=== PATIENT | female | born 1985 ===

== ENCOUNTER → 2020-06-09 08:53 | Outpatient (BNVA) | payer SELFPAY | PROVIDERS: PCP Internal Medicine; Visit Provider Physician Assistant Medical | DX: Z13.89 Encounter for screening for other disorder (principal) ==

== ENCOUNTER 2020-07-01 10:52 | Emergency (ER) | payer OTHER, SELFPAY | END 2020-07-01 13:42 | disposition left against medical advice (07) | LOC: HO.ED 13:40 | PROVIDERS: Emergency Provider Emergency Medicine; PCP Internal Medicine | DX: R00.2 Palpitations (principal) | CPT/HCPCS: 99281 ==

== ENCOUNTER 2020-07-28 15:13 | Emergency (ER) | payer OTHER, SELFPAY ==
[2020-07-28 15:26] VITALS: BP 107/64; PULSE 62; RESP 16; TEMP 36.7; O2SAT 99; BMI 30.1
--- NOTE | 2020-07-28 15:40 | ED_ITS ---
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 Fever, URI symptoms. MD complaint: chest pain Onset (ago): hour(s) Prior episodes: Yes Pain location: right chest Pain radiation: right arm Quality: aching Treatment prior to arrival: none Related Data Allergies Allergy/AdvReac Type Severity Reaction Status Date / Time latex [LATEX] Allergy Unknown ITCHY Unverified 04/29/20 16:51 Review of Systems Review of Systems: Constitutional: No Weight loss, No Fever, No Chills, No Night Sweats, No Fatigue, No Malaise ENT/Mouth: No Hearing loss, No Ear Pain, No Nasal Congestion, No Sinus Pain, No Hoarseness, No sore throat, No Rhinorrhea, No Swallowing Difficulty Eyes: No Eye Pain, No Swelling, No Redness, No Foreign Body, No Discharge, No Vision Changes Cardiovascular: + Chest Pain/palpitation as noted in HPI, No SOB, No Dyspnea on Exertion, No Orthopnea, No Edema, No Palpitations Respiratory: No Cough, No Sputum, No Wheezing, No Smoke Exposure, No Dyspnea Gastrointestinal: No Nausea, No Vomiting, No Diarrhea, No Constipation, No abdominal Pain, No Hematochezia, No Melena Genitourinary: no irregular bleeding, No Dysuria, No Urinary Frequency, No Hematuria, No Urinary Incontinence, No Urgency, No Flank Pain, No Urinary Flow Changes Musculoskeletal: No joint pain, No Myalgias, No Joint Swelling Skin: No Skin Lesions, No rash Neuro: No Weakness, No Numbness, No Paresthesias, No Loss of Consciousness, No Dizziness, No Headache Psych: + Anxiety/Panic, No Depression, No SI/HI/AH/VH, No Social Issues Heme/Lymph: No Bruising, No Bleeding,No Lymphadenopathy Endocrine: No Polyuria, No Polydipsia, No Temperature Intolerance Yes all other systems are reviewed and are negative [facility] Past Medical History Medical History (Updated 07/28/20 @ 17:11 by Ethan Huffman NP) Palpitations Surgical History (Updated 07/28/20 @ 15:31 by Yaneth Antony) Hx of appendectomy Social History Social History Advance Directives: No Advance Directives Information Provided: Yes Physical Exam Vital Signs: Vital Signs: Last Vital Signs Temp 98.1 F 07/28/20 15:26 Pulse 62 07/28/20 15:26 Resp 16 07/28/20 15:26 BP 107/64 07/28/20 15:26 Pulse Ox 99 07/28/20 15:26 Body Mass Index 30.1 Reviewed Const: General: cooperative and healthy appearing; No acute distress or intoxicated appearing Nutritional Appearance: average body habitus Orientation/consciousness: patient oriented x3 HENMT: Head: Yes normal to inspection Ears: hearing grossly normal bilaterally Eyes: General: appearance normal, both eyes and all related structures Visual Knox: normal visual knox by confrontation Neck: Neck: Yes normal visual inspection and No tender Thyroid: Thyroid normal Chest: Chest palpation & inspection: normal inspection of the chest Resp: Effort & Inspection: normal respiratory effort Cardio: Jugular venous distension: no JVD Rhythm: regular rhythm Heart sounds: S1 normal heart sound present and S2 normal heart sound present GI: Inspection: Yes normal to inspection Palpation (GI): Soft to palpation Percussion: Yes normal to percussion Auscultation: normal bowel sounds : General: Yes no CVA tenderness Back/Spine/Pelvis: Back: no CVA tenderness Skin: General skin exam: no rashes or lesions noted Neuro: General: patient oriented x3 Extrem: General: Yes normal to inspection Course Course Course Narrative: In review 34-year-old female with history of ectopy/tachycardia who reportedly is scheduled for cardiac ablation presenting complaint of chest pain on the right side for past 1 hour or so radiating to the right arm. Several visits in the past for similar. Will check cardiac enzymes, EKG, chest x-ray rule out acute electrolyte derangement, ACS or pulmonary disease. Heart rate is 62 and normal sinus rhythm with no ectopy. I do not suspect PE, perc negative. Reevaluation(s) Reevaluation #1: After my evaluation patient reportedly declined her labs as she stated that she felt okay to the nurse and will go home and her. Patient denies any chance to re-presented bedside as I was informed of this and went to the bedside within several minutes as she had eloped already. MDM - Chest Pain Lab Data Labs: Lab Results 07/28/20 07/28/20 Range/Units 15:51 15:51 Urine Color YELLOW Urine Appearance CLEAR Urine pH 5.5 (5.0-8.0) Ur Specific Circle 1.025 (1.005-1.025) Urine Protein NEG (NEG-TRACE) MG/DL Urine Glucose (UA) NEG (NEG) MG/DL Urine Ketones NEG (NEG) MG/DL Urine Blood NEG (NEG) Urine Nitrite NEG (NEG) Ur Leukocyte Esterase NEG (NEG) Urine RBC 0-2 (0) /HPF Urine WBC 1-4 (0-4) /HPF Ur Squamous Epith Cells TRACE /LPF Amorphous Sediment 1+ /LPF Urine Bacteria NONE /LPF Urine Test NEGATIVE (NEGATIVE) Urine Opiates Screen Not Detected (Not Detect) Ur Barbiturates Screen Not Detected (Not Detect) Ur Phencyclidine Scrn Not Detected (Not Detect) Ur Amphetamines Screen Not Detected (Not Detect) U Benzodiazepines Scrn Not Detected (Not Detect) Urine Cocaine Screen Not Detected (Not Detect) U Marijuana (THC) Screen Not Detected (Not Detect) Discharge Plan Discharge Clinical Impression: Atypical chest pain Patient Disposition: Elopement Instructions: Chest Pain (ED), Heart Palpitations (ED)
--- NOTE | 2020-07-28 15:43 | XR_ITS ---
EXAMINATION: XR CHEST CLINICAL INFORMATION: Chest pain COMPARISON: Chest radiographs 12/23/2019, 03/09/2019 TECHNIQUE: Portable upright AP view of the chest was obtained. FINDINGS: The lungs are clear. There is no pneumothorax, pleural reaction, airspace consolidation, groundglass opacity. There is no effusion. The costophrenic sulci are clear. The heart is normal in size. The hilar and mediastinal contours are normal. No visible acute bony abnormality. XR/XR chest 1V IMPRESSION: Unremarkable examination.
--- NOTE | 2020-07-28 15:43 | ECG_ITS ---
Test Reason : CHEST PAIN Blood Pressure : / mmHG Vent. Rate : 062 BPM Atrial Rate : 062 BPM P-R Int : 160 ms QRS Dur : 104 ms QT Int : 444 ms P-R-T Axes : 030 012 010 degrees QTc Int : 450 ms Normal sinus rhythm Nonspecific T wave abnormality Abnormal ECG When compared with ECG of 23-DEC-2019 13:44, T wave inversion now evident in Anterior leads Referred By: Ethan Huffman Electronically Signed By:Leobardo Boone
[2020-07-28 16:00] LABS: Glucose Urine UA NEG (NEG); Leukocyte Esterase Urine NEG (NEG); Nitrite Urine NEG (NEG); PH 5.5 (5.0-8.0); Specific Gravity - Urine 1.025 (1.005-1.025); Urine Blood NEG (NEG); Urine Ketones NEG (NEG); Urine Protein NEG (NEG-TRACE)
[2020-07-28 16:09] LABS: Appearance Urine CLEAR; Color Urine YELLOW
[2020-07-28 16:10] LABS: UPreg QC Valid YES; Urine Pregnancy NEGATIVE (NEGATIVE)
[2020-07-28 16:14] LABS: RBC Urine 0-2 /HPF (0); Squamous Epithelial Cell Urine TRACE /LPF
[2020-07-28 16:15] LABS: Amorphous Sediment Urine 1+ /LPF
[2020-07-28 16:18] LABS: Amphetamine Screen Urine Not Detected (Not Detect); Barbiturates, Urine Not Detected (Not Detect); Benzodiazepines Screen Urine Not Detected (Not Detect); Cannabinoid Screen Urine Not Detected (Not Detect); Cocaine Screen Urine Not Detected (Not Detect); Opiate Screen Urine Not Detected (Not Detect); Phencyclidine Screen Urine Not Detected (Not Detect)
--- NOTE | 2020-07-28 16:46 | PC.NURSE ---
patient states wants to leave because feels better. this nurse attempted to convince patient to stay but patient insistant in leaving. pain has decreased. no s/s of distress.
== END 2020-07-28 17:16 | disposition left against medical advice (07) ==
PROVIDERS: Nurse Practitioner Primary Care; Emergency Provider Emergency Medicine; PCP Internal Medicine
DX: R07.89 Other chest pain (principal); R00.2 Palpitations
CPT/HCPCS: 71045; 80307; 81001; 81025; 93005; 99283

== ENCOUNTER 2020-08-18 14:13 | Outpatient (REF) | payer OTHER, SELFPAY | END 2020-08-18 14:14 | disposition home or self-care (01) | LOC: HO.HMGCLDS 14:13 | PROVIDERS: PCP Internal Medicine; Visit Provider Internal Medicine | DX: Z13.89 Encounter for screening for other disorder (principal) ==

== ENCOUNTER 2020-08-19 | Outpatient (REF) | payer OTHER, SELFPAY ==
[2020-08-19 11:26] LABS: Glucose Urine UA NEG (NEG); Leukocyte Esterase Urine 2+ (NEG); Nitrite Urine NEG (NEG); Specific Gravity - Urine >= 1.030 (1.005-1.025); Urine Blood NEG (NEG); Urine Ketones NEG (NEG); Urine Protein NEG (NEG-TRACE)
[2020-08-19 11:27] LABS: Appearance Urine CLOUDY; Color Urine YELLOW
[2020-08-19 11:39] LABS: Bacteria Urine 2+ /LPF; RBC Urine 0 /HPF (0); Squamous Epithelial Cell Urine 4+ /LPF
[2020-08-20 19:57] LABS: C. trachomatis RNA TMA NOT DETECTED (NOT DETECTED); N. gonorrhoeae RNA TMA NOT DETECTED (NOT DETECTED)
== END 2020-08-19 00:01 | disposition home or self-care (01) ==
LOC: HO.HMGCLNP
PROVIDERS: Visit Provider Internal Medicine
DX: N89.8 Other specified noninflammatory disorders of vagina (principal)
CPT/HCPCS: 81001; 87086; 87491; 87591

== ENCOUNTER 2020-08-31 10:04 | Outpatient (REF) | payer OTHER, SELFPAY ==
[2020-08-31 11:24] LABS: MANUAL DIFF FLAG NO
[2020-08-31 11:45] LABS: Basophils Percent Auto 0.6 % (0-2); Eosinophils Absolute Auto 0.1 X10*3/uL (0.0-0.4); Eosinophils Percent Auto 1.3 % (0-4); Hematocrit 39.2 % (37-47); Hemoglobin 12.7 g/dl (12.0-16.0); Imm Gran Abs Auto 0.01 X10*3/uL (0.00-0.03); Imm Gran Pct Auto 0.2 % (0.0-0.4); Lymphocytes Absolute Auto 1.8 X10*3/uL (1.2-4.9); Lymphocytes Percent Auto 33.3 % (20-40); Mean Corpuscular HGB Conc 32.4 g/dl (31.0-35.0); Mean Corpuscular Hemoglobin 30.5 pg (27.0-33.0); Mean Corpuscular Volume 94.2 fL (80-98); Mean Platelet Volume 9.3 fL (9.4-12.3); Monocytes Absolute Auto 0.4 X10*3/uL (0.1-1.2); Monocytes Percent Auto 7.7 % (2-11); Neutrophils Percent Auto 56.9 % (45-73); Platelet Count 260 X10*3/uL (160-400); Red Blood Count 4.16 X10*6/uL (4.20-5.50); Red Cell Distribution Width 11.3 % (11.0-16.0); White Blood Count 5.3 X10*3/uL (4.8-10.8)
[2020-08-31 11:47] LABS: Prothrombin Time 11.6 SEC (10.8-13.0)
[2020-08-31 11:50] LABS: Partial Thromboplastin Time 35.7 SEC (24.1-38.0)
[2020-08-31 11:53] LABS: HCG Quantitative < 2 mIU/mL
[2020-08-31 12:07] LABS: Anion Gap 12 (12-20); Blood Urea Nitrogen 13 mg/dL (9-16); Calcium 8.9 mg/dL (8.4-10.2); Carbon Dioxide 27 mmol/L (22-29); Chloride 103 mmol/L (96-108); Estimated Glomerular Filt Rate > 60; Glucose Fasting 103 mg/dL (60-99); Potassium 4.4 mmol/l (3.3-5.1); Sodium 138 mmol/L (135-145)
[2020-08-31 12:44] LABS: Glucose Urine UA NEG (NEG); Leukocyte Esterase Urine NEG (NEG); Nitrite Urine NEG (NEG); Urine Blood 3+ (NEG); Urine Ketones NEG (NEG); Urine Protein TRACE MG/DL (NEG-TRACE)
[2020-08-31 12:46] LABS: Appearance Urine CLOUDY; Color Urine PINK
[2020-08-31 13:14] LABS: WBC Urine 0-2 /HPF (0-4)
[2020-08-31 13:15] LABS: RBC Urine TNTC /HPF (0); Squamous Epithelial Cell Urine 1+ /LPF
[2020-09-01 09:09] LABS: HIV AB/AG Nonreactive (Nonreactive); HIV Num 1 0.07 S/CO (0.00-0.99)
[2020-09-02 00:27] LABS: C. trachomatis RNA TMA NOT DETECTED (NOT DETECTED); N. gonorrhoeae RNA TMA NOT DETECTED (NOT DETECTED)
== END 2020-08-31 10:05 | disposition home or self-care (01) ==
LOC: HO.HMGCLDS 10:04
PROVIDERS: PCP Internal Medicine; Visit Provider Internal Medicine
DX: Z01.818 Encounter for other preprocedural examination (principal); E66.9 Obesity, unspecified; I10 Essential (primary) hypertension; N89.8 Other specified noninflammatory disorders of vagina; Z11.3 Encounter for screening for infections with a predominantly sexual mode of transmission; Z11.8 Encounter for screening for other infectious and parasitic diseases
CPT/HCPCS: 36415; 80048; 81001; 81003; 84702; 85025; 85610; 85730; 87389; 87491; 87591

== ENCOUNTER 2020-09-13 08:42 | Outpatient (REF) | payer OTHER, SELFPAY ==
[2020-09-13 11:42] LABS: Estimated Average Glucose 103 mg/dL; Hemoglobin A1c % 5.2 %
== END 2020-09-13 08:43 | disposition home or self-care (01) ==
LOC: HO.HMGCLDS 08:42
PROVIDERS: PCP Internal Medicine; Visit Provider Internal Medicine
DX: Z01.810 Encounter for preprocedural cardiovascular examination (principal); I47.1 Supraventricular tachycardia
CPT/HCPCS: 36415; 83036; 93005; 99212

== ENCOUNTER 2021-01-17 09:58 | Emergency (ER) | payer OTHER, SELFPAY ==
--- NOTE | ~2021-01-17 | XR_ITS ---
EXAMINATION: RIGHT FEMUR AND RIGHT FOOT. CLINICAL INFORMATION: Injury. COMPARISON: None TECHNIQUE: 2 views right femur. 3 views right foot FINDINGS: RIGHT FEMUR: There is no visible acute fracture or bony abnormality. The soft tissues are normal. The hip joint is normal. RIGHT FOOT: There is no visible acute fracture, dislocation or subluxation. The intertarsal, metatarsophalangeal and interphalangeal joints are maintained normal. The ankle mortise and subtalar joints are normal. The soft tissues are normal. XR/XR foot RT min 3V IMPRESSION: Unremarkable right femur. Unremarkable right foot exam.
--- NOTE | ~2021-01-17 | CT_ITS ---
EXAMINATION: CT CERVICAL SPINE WITHOUT CONTRAST CLINICAL INFORMATION: Trauma. Rule out fracture. COMPARISON: Previous cervical spine CT April 2017 TECHNIQUE: Axial images through the cervical spine without contrast. Sagittal and coronal reconstructions obtained on the technologist workstation. This CT examination was performed using dose optimization techniques as appropriate, variously including the following: *Automated exposure control *Adjustment of mA and/or kV according to patient size (this includes techniques or standardized protocols for targeted exams where dose is matched to indication/reason for exam; i.e. extremities or head) *Use of iterative reconstruction technique DLP: 599 mGy-cm FINDINGS: There is curvature of the lower cervical spine to the right and proximal thoracic spine to the left. Bone alignment is otherwise normal. No fracture or dislocation is seen. Disc spaces are normal. Prevertebral soft tissues are normal. There is shotty cervical lymphadenopathy. The visualized lung apices are clear. CT/CT cervical spine wo con IMPRESSION: No fracture seen.
--- NOTE | ~2021-01-17 | XR_ITS ---
EXAMINATION: LEFT KNEE AND RIGHT ANKLE CLINICAL INFORMATION: Injury. Pain. COMPARISON: None TECHNIQUE: Left knee 4 views. Right ankle 2 views. FINDINGS: LEFT KNEE: There is no visible acute fracture, dislocation or subluxation. The tricompartment joint space is maintained normal. No bony erosive changes, loose body or joint effusion. RIGHT ANKLE: There is no visible acute fracture or dislocation. The ankle mortise and subtalar joints are normal. The soft tissues are normal. XR/XR ankle RT 2V IMPRESSION: Unremarkable left knee exam. Unremarkable right ankle exam.
--- NOTE | ~2021-01-17 | CT_ITS ---
EXAMINATION: CT HEAD WITHOUT CONTRAST CLINICAL INFORMATION: Injury. Rule out bleed. COMPARISON: Previous head CT April 2017 TECHNIQUE: Contiguous axial imaging was performed from the skull base to vertex without intravenous administration of contrast. This CT examination was performed using dose optimization techniques as appropriate, variously including the following: *Automated exposure control *Adjustment of mA and/or kV according to patient size (this includes techniques or standardized protocols for targeted exams where dose is matched to indication/reason for exam; i.e. extremities or head) *Use of iterative reconstruction technique DLP: 696 mGy-cm FINDINGS: There is no evidence of acute intracranial hemorrhage or territorial infarction. No abnormal mass effect or midline shift is seen. Traylor to white matter differentiation is well preserved. No extra-axial fluid collections are identified. The ventricles are normal in size. There is no abnormal attenuation within the brain parenchyma. The osseous structures and soft tissues are normal. The mastoid air cells and visualized portions of the paranasal sinuses are well aerated. CT/CT head/brain wo con IMPRESSION: No acute intracranial pathology.
--- NOTE | ~2021-01-17 | XR_ITS ---
EXAMINATION: RIGHT FEMUR AND RIGHT FOOT. CLINICAL INFORMATION: Injury. COMPARISON: None TECHNIQUE: 2 views right femur. 3 views right foot FINDINGS: RIGHT FEMUR: There is no visible acute fracture or bony abnormality. The soft tissues are normal. The hip joint is normal. RIGHT FOOT: There is no visible acute fracture, dislocation or subluxation. The intertarsal, metatarsophalangeal and interphalangeal joints are maintained normal. The ankle mortise and subtalar joints are normal. The soft tissues are normal. XR/XR femur RT 2V IMPRESSION: Unremarkable right femur. Unremarkable right foot exam.
--- NOTE | ~2021-01-17 | XR_ITS ---
EXAMINATION: LEFT KNEE AND RIGHT ANKLE CLINICAL INFORMATION: Injury. Pain. COMPARISON: None TECHNIQUE: Left knee 4 views. Right ankle 2 views. FINDINGS: LEFT KNEE: There is no visible acute fracture, dislocation or subluxation. The tricompartment joint space is maintained normal. No bony erosive changes, loose body or joint effusion. RIGHT ANKLE: There is no visible acute fracture or dislocation. The ankle mortise and subtalar joints are normal. The soft tissues are normal. XR/XR knee LT 4V IMPRESSION: Unremarkable left knee exam. Unremarkable right ankle exam.
[2021-01-17 10:01] VITALS: BP 108/64; PULSE 72; RESP 17; TEMP 36.1; O2SAT 98; BMI 29.2
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
[2021-01-17 10:50] LABS: UPreg QC Valid YES; Urine Pregnancy NEGATIVE (NEGATIVE)
--- NOTE | 2021-01-17 12:27 | PC.NURSE ---
DARCIE WRAP APPLIED TO RIGHT KNEE AND RIGHT FOOT FOR COMFORT.
== END 2021-01-17 12:29 | disposition home or self-care (01) ==
PROVIDERS: Physician Assistant Medical; Emergency Provider Emergency Medicine; PCP Internal Medicine
DX: S93.601A Unspecified sprain of right foot, initial encounter (principal); S16.1XXA Strain of muscle, fascia and tendon at neck level, initial encounter; S70.11XA Contusion of right thigh, initial encounter; V91.83XA Other injury due to other accident to other powered watercraft, initial encounter; Y93.19 Activity, other involving water and watercraft; Y92.89 Other specified places as the place of occurrence of the external cause; Y99.9 Unspecified external cause status
CPT/HCPCS: 70450; 72125; 73552; 73564; 73600; 73630; 81025; 99284

== ENCOUNTER 2021-05-25 12:32 | Outpatient (REF) | payer OTHER, SELFPAY ==
[2021-05-26 02:08] LABS: CT PCR NOT DETECTED (Not Detect.); NG PCR NOT DETECTED (Not Detect.)
[2021-05-26 08:40] LABS: BV Int Neg Control Negative (Negative); BV Int Pos Control Positive (Positive)
== END 2021-05-25 12:33 | disposition home or self-care (01) ==
LOC: HO.LAB 12:32
PROVIDERS: PCP Internal Medicine; Visit Provider Physician Assistant Medical
DX: Z11.3 Encounter for screening for infections with a predominantly sexual mode of transmission (principal); R10.2 Pelvic and perineal pain; R35.0 Frequency of micturition
CPT/HCPCS: 87086; 87147; 87480; 87491; 87510; 87591; 87660

== ENCOUNTER → 2021-05-25 12:32 | Outpatient (BNVA) | payer SELFPAY | PROVIDERS: PCP Internal Medicine | DX: R76.11 Nonspecific reaction to tuberculin skin test without active tuberculosis (principal) ==

== ENCOUNTER → 2021-10-11 13:40 | Outpatient (BNVA) | payer OTHER, SELFPAY | PROVIDERS: PCP Internal Medicine; Referring Provider Internal Medicine; Visit Provider Nurse Practitioner Family | DX: I47.1 Supraventricular tachycardia (principal); R00.2 Palpitations | CPT/HCPCS: 93005; 99212 ==

== ENCOUNTER → 2021-10-24 11:33 | Outpatient (REF) | payer OTHER, SELFPAY ==
--- NOTE | 2021-10-24 11:37 | HM_ITS ---
conclusion: 1. Patient was monitored for total period of 6 days and 23 hours 2. Baseline was normal sinus rhythm with average heart of 74 beats per minute 3. Total of 258 PACs accounting for 0.03% of total beats accounting for very rare PACs 4. No significant pauses or bradycardia 5 Patient reported 15 total events most of which correlated with sinus rhythm, 1-2 events correlated with PACs. MTDD
== END ==
LOC: HO.CARD 11:33
PROVIDERS: Visit Provider Nurse Practitioner Family
DX: I47.1 Supraventricular tachycardia (principal); R00.2 Palpitations
CPT/HCPCS: 93242

== ENCOUNTER 2022-03-30 09:17 | Outpatient (REF) | payer OTHER, SELFPAY ==
[2022-03-30 16:58] LABS: MANUAL DIFF FLAG NO
[2022-03-30 17:02] LABS: Basophils Percent Auto 0.5 % (0-2); Eosinophils Absolute Auto 0.1 X10*3/uL (0.0-0.4); Hematocrit 38.5 % (37.0-47.0); Hemoglobin 12.7 g/dl (12.0-16.0); Imm Gran Abs Auto 0.02 X10*3/uL (0.00-0.03); Imm Gran Pct Auto 0.3 % (0.0-0.4); Lymphocytes Absolute Auto 1.9 X10*3/uL (1.2-4.9); Lymphocytes Percent Auto 31.3 % (20-40); Mean Corpuscular Volume 93.9 fL (80.0-98.0); Mean Platelet Volume 9.4 fL (9.4-12.3); Monocytes Absolute Auto 0.5 X10*3/uL (0.1-1.2); Monocytes Percent Auto 8.8 % (2-11); Neutrophils Absolute Auto 3.6 x10*3/uL (2.0-8.3); Neutrophils Percent Auto 58.1 % (45-73); Platelet Count 243 X10*3/uL (160-400); Red Cell Distribution Width 11.6 % (11.0-16.0); White Blood Count 6.1 X10*3/uL (4.8-10.8)
[2022-03-30 17:13] LABS: Alanine Aminotransferase 22 U/L (0-31); Alkaline Phosphatase 59 U/L (39-117); Anion Gap 13 (12-20); Aspartate Amino Transferase 21 U/L (5-31); Bilirubin Total 0.4 mg/dL (0.0-1.0); Blood Urea Nitrogen 15 mg/dL (9-16); Calcium 9.2 mg/dL (8.4-10.2); Carbon Dioxide 25 mmol/L (22-29); Chloride 106 mmol/L (96-108); Estimated Glomerular Filt Rate > 60; Glucose Random 84 mg/dL (60-115); Potassium 4.2 mmol/L (3.3-5.1); Sodium 140 mmol/L (135-145); Total Protein 7.1 g/dL (6.5-8.0)
[2022-03-30 17:23] LABS: Estimated Average Glucose 100 mg/dL; Hemoglobin A1c % 5.1 %
[2022-03-30 17:34] LABS: TSH reflex Free T4 1.68 uIU/mL (0.32-4.0)
[2022-04-02 11:12] LABS: LDL Cholesterol Direct 146 mg/dL (<100)
== END 2022-03-30 09:18 | disposition home or self-care (01) ==
LOC: HO.HMGCLDS 09:17
PROVIDERS: PCP Internal Medicine; Visit Provider Internal Medicine
DX: M54.9 Dorsalgia, unspecified (principal); R35.89 Other polyuria; R53.83 Other fatigue; R63.1 Polydipsia
CPT/HCPCS: 36415; 80053; 83036; 83721; 84443; 85025

== ENCOUNTER 2022-04-06 10:56 | Outpatient (REF) | payer OTHER, SELFPAY ==
--- NOTE | ~2022-04-06 | US_ITS ---
EXAMINATION: US RETROPERITONEAL LIMITED (RENAL ONLY) CLINICAL INFORMATION: Dorsalgia. COMPARISON: The abdomen and pelvis 12/20/2016. TECHNIQUE: Real-time imaging of the kidneys. FINDINGS: RIGHT KIDNEY: 10.7 x 5.4 x 6.5 cm (SAG x AP x TRV). The kidney is normal in size, contour, and echogenicity. Renal cortical thickness is normal. No calculi or focal parenchymal lesions. No hydronephrosis. LEFT KIDNEY: 11.2 x 5.5 x 4.9 cm (SAG x AP x TRV). The kidney is normal in size, contour, and echogenicity. Renal cortical thickness is normal. No calculi or focal parenchymal lesions. No hydronephrosis. US/US renal BI IMPRESSION: Normal renal ultrasound.
== END 2022-04-06 10:57 | disposition home or self-care (01) ==
LOC: HO.US 10:56
PROVIDERS: Visit Provider Internal Medicine
DX: M54.9 Dorsalgia, unspecified (principal); R35.89 Other polyuria; R53.83 Other fatigue; R63.1 Polydipsia
CPT/HCPCS: 76775

== ENCOUNTER → 2022-04-12 14:10 | Outpatient (BNVA) | payer OTHER, SELFPAY | PROVIDERS: PCP Internal Medicine; Referring Provider Internal Medicine; Visit Provider Nurse Practitioner Family | DX: I47.1 Supraventricular tachycardia (principal); R00.2 Palpitations | CPT/HCPCS: 99212 ==

== ENCOUNTER 2022-09-28 18:13 | Outpatient (REF) | payer OTHER, SELFPAY ==
[2022-09-28 18:23] LABS: Appearance Urine Turbid; Color Urine Yellow; Glucose Urine UA Negative (Negative); Leukocyte Esterase Urine Moderate (2+) (Negative); Nitrite Urine Negative (Negative); Specific Gravity - Urine >= 1.030 (1.005-1.025); UMIC TRIGGER UACC YES; Urine Blood Negative (Negative); Urine Ketones Trace mg/dL (Negative); Urine Protein Trace mg/dL (Neg-Trace)
[2022-09-28 18:28] LABS: Bacteria Urine 4+ (None Seen); RBC Urine 0-2 /HPF (0-2); Squamous Epithelial Cell Urine >20 /HPF (0-2); UACC Culture Trigger YES
== END 2022-09-28 18:14 | disposition home or self-care (01) ==
LOC: HO.LNP 18:13
PROVIDERS: Visit Provider Internal Medicine
DX: R10.9 Unspecified abdominal pain (principal)
CPT/HCPCS: 81001; 87086

== ENCOUNTER 2023-04-24 07:43 | Emergency (ER) | payer OTHER, SELFPAY ==
[2023-04-24 07:48] VITALS: BP 117/79; PULSE 63; RESP 16; TEMP 36.7; O2SAT 99; BMI 29.5
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
== END 2023-04-24 10:16 | disposition home or self-care (01) ==
PROVIDERS: Emergency Provider Emergency Medicine; PCP Internal Medicine
DX: M62.838 Other muscle spasm (principal); R51.9 Headache, unspecified; S13.4XXA Sprain of ligaments of cervical spine, initial encounter; V44.6XXA Car passenger injured in collision with heavy transport vehicle or bus in traffic accident, initial encounter; Y93.89 Activity, other specified; Y92.411 Interstate highway as the place of occurrence of the external cause; Y99.9 Unspecified external cause status
CPT/HCPCS: 99283; 99284

== ENCOUNTER 2023-06-10 08:15 | Emergency (ER) | payer OTHER, SELFPAY ==
[2023-06-10 08:18] VITALS: BP 113/69; PULSE 66; RESP 18; TEMP 36.6; O2SAT 98; BMI 31.9
[2023-06-10 08:35] VITALS: BP 105/64; PULSE 65; RESP 12; O2SAT 100
--- NOTE | 2023-06-10 08:42 | ECG_ITS ---
Test Reason : HEADACHE Blood Pressure : / mmHG Vent. Rate : 068 BPM Atrial Rate : 068 BPM P-R Int : 176 ms QRS Dur : 104 ms QT Int : 414 ms P-R-T Axes : 031 008 007 degrees QTc Int : 440 ms Normal sinus rhythm Normal ECG Nonspecific T wave abnormality Anterior leads is no longer Present Referred By: Marianela Valdez Electronically Signed By:ANJLAI YARBROUGH MD
--- OUTSIDE RECORDS SUMMARY | 2023-06-10 08:59 | XMS_ITS | Continuity of Care Document ---
Demographics Address [address] [place] [address] Mobile Email Address Email Address Preferred Language Lithuanian Marital Status Single Mormon Affiliation None Race Black or Mi rican Additional Race(s) Black or Mi rican Ethnic Group or Author Name Unknown Organization [facility] Address [address] [place] [address]- Care Team Providers Care Carrier Driver Name Role Phone Chema COTE, Tiny Zhao Primary Care Physician [place] [facility] [place]22 - 09/20/22 [facility] [address] [place] [address]- Attending Physician: Grabiel Storey Admitting Physician: Grabiel Storey Referring Physician: Grabiel Storey Referring Physician: Edie Orellana MA Allergies, Adverse Reactions, Alerts Substance Reaction Severity Status Latex Rash Active Immunizations Given and Recorded Vaccine Date Status Refusal Reason influenza virus vaccine, inactivated 07/18/17 Give n tetanus/diphtheria/pertussis, acel(Tdap) 1 01/01/13 Given tetanus/diphtheria/pertussis, acel(Tdap) 05/05/11 Given Influenza Inactive (IM) (oldterm) 2 09/06/12 Given Influenza Inactive (IM) (oldterm) 3 08/15/10 Given Human Papillomavirus Vaccine 4 08/15/10 Given 1Admin Note: 09/05/11 VIS Given. 2Admin Note: 02/12/12 VIS Given. 3Admin Note: vis 4Admin Note: vis 11/09/09 Medications Flonase 50 mcg/inh nasal spray 1 sprays, Nares, Both, 2 times a day, # 16 Gm, 1 Refills, Maintenance, 03/14/18 14:48:24 EDT, [place], 1 sprays Nares, Both 2 times a day Start Date: 03/14/18 Status: Ordered nortriptyline 25 mg oral capsule 50 mg, 2, capsule, By Mouth, Daily at bedtime, Take 1 po qhs for 1 week then 2 po qhs, # 60 capsule, Refills 3, Tot. Refills 3, Maintenance, 07/13/17 10:45:00, Route to Pharmacy Electronically, [id number], [facility]... Start Date: 07/13/17 Status: Ordered ranitidine 150 mg oral capsule 1 capsule = 150 mg, By Mouth, 2 times a day, # 180 capsule, 2 Refills, Maintenance, 11/17/15 18:57:54, Capsule Start Date: 11/17/15 Status: Ordered Problem List Condition Confirmation Course Effective Dates Status Health St atus Informant Bacterial vaginosis Confirmed Active VILLA - Headache Confirmed Active Insomnia Confirmed Active Social History Social History Type Response Smoking Status Never smoker entered on: 05/27/15 Sex Patient Care team information Care Team Personnel Name: Chema COTE , Tiny Zhao Position: Reference Physician Member Role: PCP Address: Address: [address] [place] [address]- Name: Danette Chowdary RN Position: [facility] OB RN Member Role: Primary Care Nurse Care Team Related Persons Name: SOLE ANDRES Address: home [address] [place] [address] Name: INES JACQUES Address: home [address] [place] [address] Name: ROSINA RUBIO Address: home [address] [address]
--- OUTSIDE RECORDS SUMMARY | 2023-06-10 08:59 | XMS_ITS | Continuity of Care Document ---
Demographics Address [address] [place] [address] Mobile Email Address Email Address Preferred Language Togolese Marital Status Single Oriental Orthodox Affiliation None Race Black or Mi rican Additional Race(s) Black Ethnic Group or Author Name Unknown Organization [facility] Address [address] [place] [address]- Care Team Providers Care Procurement Analyst Name Role Phone Chema COTE, Tiny Zhao Primary Care Phys[place] [facility] [place] [facility] [address] [place] [address]- Referring Physician: Edie Orellana Allergies, Adverse Reactions, Alerts Substance Reaction Severity [...] Gm, 1 Refills, Maintenance, 03/14/18 14:48:24 EDT, [place], 1 sprays Nares, Both 2 times a day Start Date: 03/14/18 Status: Ordered nortriptyline 25 mg oral capsule 50 mg, 2, capsule, By Mouth, Daily at bedtime, Take 1 po qhs for 1 week then 2 po qhs, # 60 capsule, Refills 3, Tot. Refills 3, Maintenance, 07/13/17 10:45:00, Route to Pharmacy Electronically, [id number], [facility] Start Date: 07/13/17 Status: Ordered ranitidine [...] on: 05/27/15 Sex Patient Care team information Personnel Name: Chema COTE , Tiny Zhao Address: Address: [address] [place] [id number]
--- OUTSIDE RECORDS SUMMARY | 2023-06-10 08:59 | XMS_ITS | Continuity of Care Document ---
Demographics Address [address] [place] [address] Mobile Email Address Email Address Preferred Language Polish Marital Status Single Episcopal Affiliation None Race Black or Mi rican Additional Race(s) Black Ethnic Group or Author Name Unknown Organization [facility] Address [address] [place] [address]- Care Team Providers Care Implementation Specialist Payroll Name Role Phone Chema COTE, Tiny Zhao Primary Care Physician [place] [facility] [place]22 [facility] [employer] [facility] [address] [place], [place] [address] Attending Physician: Alina Vasquez MD Admitting Physician: Alina Vasquez MD Referring Physician: Tiny Bear MD Allergies, Adverse Reactions, Alerts Substance Reaction Severity [...] Gm, 1 Refills, Maintenance, 03/14/18 14:48:24 EDT, [place], 1 sprays Nares, Both 2 times a day Start Date: 03/14/18 Status: Ordered nortriptyline 25 mg oral capsule 50 mg, 2, capsule, By Mouth, Daily at bedtime, Take 1 po qhs for 1 week then 2 po qhs, # 60 capsule, Refills 3, Tot. Refills 3, Maintenance, 07/13/17 10:45:00, Route to Pharmacy Electronically, [id number], [facility]... Start Date: 07/13/17 Status: Ordered [...] Chema COTE , Tiny Zhao Address: Address: [address] [place] [address]
--- OUTSIDE RECORDS SUMMARY | 2023-06-10 08:59 | XMS_ITS | Continuity of Care Document ---
Demographics Address [address] [place] [address] Mobile Email Address Email Address Preferred Language Cameroonian Marital Status Single Roman Catholic Affiliation None Race Black or Mi rican Additional Race(s) Black Ethnic Group or Author Name Unknown Organization [facility] [employer] Address [address] [place] [address]- Care Team Providers Care Cook Restaurant Name Role Phone Chema COTE, Tiny Zhao Primary Care Physician En[place] [facility] [place] 04/12/22 - 05/12/22 [facility] [employer] [facility] [address] [place], [place] [address] Attending Physician: AdmGrabiel moon Admitting Physician: Admtr, ArKasia Referring Physician: Admtr, Ar8 Allergies, Adverse Reactions, Alerts Substance Reaction Severity [...] Gm, 1 Refills, Maintenance, 03/14/18 14:48:24 EDT, [place], 1 sprays Nares, Both 2 times a day Start Date: 03/14/18 Status: Ordered nortriptyline 25 mg oral capsule 50 mg, 2, capsule, By Mouth, Daily at bedtime, Take 1 po qhs for 1 week then 2 po qhs, # 60 capsule, Refills 3, Tot. Refills 3, Maintenance, 07/13/17 10:45:00, Route to Pharmacy Electronically, [id number], [facility]... Start Date: 07/13/17 Status: Ordered [...] Chema COTE , Tiny Zhao Address: Address: [address] [place], [place] [address]
--- OUTSIDE RECORDS SUMMARY | 2023-06-10 08:59 | XMS_ITS | Continuity of Care Document ---
Demographics Address [address] [place] [address] Mobile Email Address Email Address Preferred Language Bhutanese Marital Status Single Voodoo Affiliation None Race Black or Mi rican Additional Race(s) Black or Mi rican Ethnic Group or Author Name Unknown Organization [facility] Address [address] [place] [address]- Care Team Providers Care Fire Investigation Manager Name Role Phone Chema COTE, Tiny Zhao Primary Care Physician Encounter [facility] [place] Date(s): 05/23/22 - 09/20/22 [facility] [address] [place] [address]- Attending Physician: Zaid Smyth MD Admitting Physician: Zaid Smyth MD Referring Physician: Bill RADIUS CORNER MACHINE OPERATOR, Ivette Allergies, Adverse Reactions, Alerts Substance Reaction Severity [...] Gm, 1 Refills, Maintenance, 03/14/18 14:48:24 EDT, [place], 1 sprays Nares, Both 2 times a day Start Date: 03/14/18 Status: Ordered nortriptyline 25 mg oral capsule 50 mg, 2, capsule, By Mouth, Daily at bedtime, Take 1 po qhs for 1 week then 2 po qhs, # 60 capsule, Refills 3, Tot. Refills 3, Maintenance, 07/13/17 10:45:00, Route to Pharmacy Electronically, [id number], [facility]... Start Date: 07/13/17 Status: [...] Physician Member Role: PCP Address: Address: [address] [place] [address]- Name: Danette Chowdary RN Position: [facility] OB RN Member Role: Primary Care Nurse Care Team Related Persons Name: SOLE ANDRES Address: home [address] [place] [address] Name: INES JACQUES Address: home [address] [place] [address] Name: ROSINA RUBIO Address: home [address] [address]
[2023-06-10 09:28] LABS: COVID-19 Test Negative (Negative); IDNOW Serial# 08D9AD1C; IDNOW Serial# BCCEAD1C; Influenza A Negative (Negative); Influenza B2 Negative (Negative)
--- NOTE | 2023-06-10 09:28 | ED_ITS ---
HPI - General Adult General Chief complaint: Headache Stated complaint: heart issues r side numbness dizzy blurry vision Time Seen by Provider: 06/10/23 08:40 Source: patient Mode of arrival: ambulatory History of Present Illness HPI narrative: 37-year-old female presents with complaints of 1 month of frontal headache that she feels behind her eyes and states that it is pressure like and she has taken Tylenol and ibuprofen but has not worked. She denies any associated trauma, fevers, chills, neck pain, nausea or vomiting or other GI or symptoms. Patient denies any recent changes in any medications and is only taking propanolol. Patient also describes an isolated episode of swelling of the right upper extremity that has completely resolved. Related Data Previous Rx's Medication Instructions Recorded propranolol 40 mg tablet 40 mg PO BID 90 days #180 tabs 03/06/22 hydrocortisone acetate 25 mg 25 mg MI DAILY #12 ea 09/28/22 rectal suppository (Anusol-HC) acetaminophen 325 mg capsule 650 mg (2 x 325 mg) PO Q6H PRN 04/24/23 (Tylenol) pain #45 caps cyclobenzaprine 10 mg tablet 10 mg PO TID PRN muscle spasm #10 04/24/23 tabs ibuprofen 800 mg tablet 800 mg PO Q8H PRN pain #45 tabs 04/24/23 lidocaine 5 % topical patch 1 patch topical DAILY #30 ea 04/24/23 (Lidoderm) propranolol 40 mg tablet 40 mg PO BID 30 days #60 tabs 04/24/23 Allergies Allergy/AdvReac Type Severity Reaction Status Date / Time latex [LATEX] Allergy Unknown ITCHY Verified 06/10/23 08:18 Review of Systems 2 Review of Systems: Pertinent positives and negatives as stated in HPI [facility] Past Medical History Source: nursing notes reviewed Medical History BRBPR (bright red blood per rectum) Urinary incontinence Increased urinary frequency Obesity (BMI 30-39.9) Schizophrenia Abnormal Pap smear of cervix Migraine Dyslipidemia Atrial tachycardia Surgical History H/O exploratory laparotomy H/O abdominoplasty Hx of appendectomy Family History Family History Paternal Uncle Schizophrenia Mental health disorder Mother Drug addiction Mother Substance use disorder Paternal Aunt Substance use disorder Social History Social History Housing: House Alcohol intake: never Patient Tobacco Use Status: Never used Tobacco Smoked in Last 30 Days: No e-Cigarette/Vaping Use: Never Used Use of substances other than those prescribed or required for medical reasons: No Advance Directives: No Advance Directives Information Provided: No Patient : No service: No Current occupational status: employed Cognitive needs: No Hearing needs: No Vision needs: No Physical Exam ED Vital Signs: Vital Signs - 24 hr 06/10/23 08:18 06/10/23 08:35 06/10/23 10:19 Temperature 98 F Pulse Rate 66 65 59 Respiratory Rate 18 12 18 Blood Pressure 113/69 105/64 110/75 Pulse Oximetry 98 100 100 Oxygen Delivery Method Room Air Room Air Room Air BMI result Body Mass Index 31.9 VITAL SIGNS: Reviewed. GENERAL: Well developed, well nourished, in no acute distress. HEAD: Normocephalic/atraumatic EYES: PERRLA, EOMI EARS: Ext canals without abnormality, TMs non-bulging and non-erythematous NOSE: Nares patent bilateral OROPHARYNX: no oral lesions noted, posterior pharynx clear and non-erythematous without noted tonsillar enlargement/erythema/exudates NECK: Supple, no adenopathy LUNGS: Normal breath sounds. No adventitious sounds or accessory muscle use. SpO2<100> CARDIOVASCULAR: Regular rate and rhythm without noted murmurs ABDOMEN: Soft, non-tender, non-distended with bowel sounds. MUSCULOSKELETAL: No tenderness, deformities, or effusions noted on gross inspection. EXTREMITIES: No cyanosis, clubbing or edema. RUE: There is no deformity/erythema/induration, hand is warm, palpable radial and ulnar pulses with good capillary refill and sensation is intact. SKIN: Inspection of the skin reveals no rashes, ulcerations, jaundice, pallor, or petechiae. NEUROLOGIC: Alert and oriented x 4. Strength and sensation to light touch were grossly intact x 4. Medications Administered Discontinued Medications Generic Name Dose Route Start Last Admin Trade Name Freq PRN Reason Stop Dose Admin Acetaminophen/Butalbital/Caffeine 1 tab 06/10/23 10:12 06/10/23 10:21 Butalb/Acetamin/Caff 50/325/40 Tablet PO 06/10/23 10:13 1 tab ONCE ONE Administration Medical Decision Making Medical Decision Making MDM Narrative: 37-year-old female with history and clinical presentation, DDX: Pharyngitis, viral illness, chronic headache (states she has a remote history of migraines but denies that this is anything like her migraines), no clinical [facility] physician for upper extremity cellulitis or DVT and no concern for fracture or dislocation as there are no acute findings. I reviewed all investigations and hematologic indices are negative for leukocytosis or left shift, there is no evidence of thrombocytopenia or anemia. Coagulation studies are within normal limits. Chemistry indices are negative for acute findings and there is no demonstration of CHARLY or electrolyte/liver enzyme derangements. High sensitivity troponin is undetectable and beta hCG is undetectable. TSH is noted to be within normal limits and CRP is within normal limits. ESR is mildly elevated but not enough to suggest any giant cell arteritis. Urinalysis is negative for UTI or hematuria. Viral testing is negative. Patient received Fioricet for her headache and on re-evaluation states she feels better. Her workup today his otherwise only suggested the possibility of either tension verses migrainous headache which resolved with Fioricet. Patient will be instructed to follow-up with her primary care doctor by calling the office on Sunday morning. Differential Diagnosis Differential Diagnoses: The differential diagnosis associated with the presentation includes Please see the discussion above Admission/Observation Consideration of admission/observation: Escalation of care including admission/observation considered Please see the discussion above Lab Data [facility] Lab Attestation statement: I reviewed the patient's lab results. Please see the discussion above 06/10/23 09:49 06/10/23 09:49 Labs: Lab Results 06/10/23 06/10/23 06/10/23 Range/Units 08:57 09:49 11:44 WBC 6.6 (4.8-10.8) X10*3/uL RBC 3.79 L (4.20-5.50) X10*6/uL Hgb 12.0 (12.0-16.0) g/dl Hct 36.0 L (37.0-47.0) % MCV 95.0 (80.0-98.0) fL MCH 31.7 (27.0-33.0) pg MCHC 33.3 (31.0-35.0) g/dl RDW 11.4 (11.0-16.0) % Plt Count 224 (160-400) X10*3/uL MPV 8.8 L (9.4-12.3) fL Immature Gran % (Auto) 0.3 (0.0-0.4) % Neut % (Auto) 59.5 (45-73) % Lymph % (Auto) 30.9 (20-40) % Kidder % (Auto) 8.0 (2-11) % Eos % (Auto) 0.8 (0-4) % Baso % (Auto) 0.5 (0-2) % Lymph # (Auto) 2.0 (1.2-4.9) X10*3/uL Kidder # (Auto) 0.5 (0.1-1.2) X10*3/uL Eos # (Auto) 0.1 (0.0-0.4) X10*3/uL Baso # (Auto) 0.0 (0.0-0.2) X10*3/uL Abs Immat Gran (auto) 0.02 (0.00-0.03) X10*3/uL Absolute Neuts (auto) 3.9 (2.0-8.3) x10*3/uL Absolute Nucleated RBC 0.000 (0.0-0.012) X10*3/uL Nucleated RBC % (auto) 0.0 (0.0-0.2) /100WBC ESR 25 H (0-20) MM/HR PT 12.3 (11.1-13.3) SEC INR 1.0 (0.9-1.1) Sodium 139 (135-145) mmol/L Potassium 4.0 (3.3-5.1) mmol/L Chloride 108 (96-108) mmol/L Carbon Dioxide 21 L (22-29) mmol/L Anion Gap 14 (12-20) BUN 12 (9-16) mg/dL Creatinine 0.74 (0.5-1.4) mg/dL Estim Creat Clear Calc 132.2 Estimated GFR > 60 Random Glucose 90 (60-115) mg/dL Calcium 9.1 (8.4-10.2) mg/dL Total Bilirubin 0.3 (0.0-1.0) mg/dL AST 24 (5-31) U/L ALT 39 H (0-31) U/L Alkaline Phosphatase 77 (39-117) U/L Troponin I High Sens < 2.7 (<3.5-17.0) ng/L C-Reactive Protein 0.43 (< or = 0.50) mg/dL Total Protein 7.6 (6.5-8.0) g/dL Albumin 3.8 (3.5-5.0) g/dL TSH 1.47 (0.32-4.0) uIU/mL Beta HCG, Quant < 2 mIU/mL Urine Color Yellow Urine Appearance Clear Urine pH 7.5 (5.0-9.0) Ur Specific Spencer 1.015 (1.005-1.025) Urine Protein Negative (Neg-Trace) mg/dL Urine Glucose (UA) Negative (Negative) mg/dL Urine Ketones Negative (Negative) mg/dL Urine Blood Negative (Negative) Urine Nitrite Negative (Negative) Ur Leukocyte Esterase Negative (Negative) Urine Test NEGATIVE (NEGATIVE) COVID-19 (DARVIN) Negative (Negative) COVID-19 Clin Com See Note Influenza Type A (EVA) Negative (Negative) Influenza Type B (EVA) Negative (Negative) Influenza A & B Note See Note Independent Interpretation I performed an independent interpretation of an: EKG Interpretation: Normal sinus rhythm, HR-68, no STEMI, MI/QRS/QTC is within normal limits. External Record Review External record reviewed: Outpatient record, Prior outpatient labs and Prior outpatient radiology Chronic Conditions Patient?s care impacted by: Other Atrial tachycardia Critical Care Time Critical Care Time Critical Care Time: Yes Total Critical Care Time: 30 Attestation: I personally attest to this time spent taking care of the patient. Discharge Plan Discharge Clinical Impression: Headache Patient Disposition: Home, Self-Care Instructions: General Headache (ED) Additional Instructions: 1. Resume all home medications as prescribed. 2. Recommend [id number] Tylenol/ibuprofen for headache control, please consider Excedrin migraine. 3. Follow-up with Dr. Bear by calling the office Sunday morning and setting up an appointment for re-evaluation further outpatient management. Return to the ER for any worsening symptoms. Prescriptions: No Action propranolol 40 mg tablet 40 mg PO BID 90 Days Qty: 180 3RF propranolol 40 mg tablet 40 mg PO BID 30 Days Qty: 60 0RF ibuprofen 800 mg tablet 800 mg PO Q8H PRN (Reason: pain) Qty: 45 0RF acetaminophen [Tylenol] 325 mg capsule 650 mg PO Q6H PRN (Reason: pain) Qty: 45 0RF cyclobenzaprine 10 mg tablet 10 mg PO TID PRN (Reason: muscle spasm) Qty: 10 0RF lidocaine [Lidoderm] 5 % adhesive patch,medicated 1 patch topical DAILY Qty: 30 0RF Rx Instructions: leave on most painful area for up to 12 hrs hydrocortisone acetate [Anusol-HC] 25 mg suppository 25 mg MI DAILY Qty: 12 0RF Referrals: Tiny Bear MD [Primary Care Provider] -
[2023-06-10 09:54] LABS: MANUAL DIFF FLAG NO
[2023-06-10 10:03] LABS: Basophils Percent Auto 0.5 % (0-2); Eosinophils Absolute Auto 0.1 X10*3/uL (0.0-0.4); Eosinophils Percent Auto 0.8 % (0-4); Imm Gran Abs Auto 0.02 X10*3/uL (0.00-0.03); Imm Gran Pct Auto 0.3 % (0.0-0.4); Lymphocytes Percent Auto 30.9 % (20-40); Mean Corpuscular HGB Conc 33.3 g/dl (31.0-35.0); Mean Corpuscular Hemoglobin 31.7 pg (27.0-33.0); Mean Platelet Volume 8.8 fL (9.4-12.3); Monocytes Absolute Auto 0.5 X10*3/uL (0.1-1.2); Neutrophils Absolute Auto 3.9 x10*3/uL (2.0-8.3); Neutrophils Percent Auto 59.5 % (45-73); Platelet Count 224 X10*3/uL (160-400); Red Blood Count 3.79 X10*6/uL (4.20-5.50); Red Cell Distribution Width 11.4 % (11.0-16.0); White Blood Count 6.6 X10*3/uL (4.8-10.8)
[2023-06-10 10:08] LABS: Prothrombin Time 12.3 SEC (11.1-13.3)
[2023-06-10 10:09] LABS: Alanine Aminotransferase 39 U/L (0-31); Albumin Level 3.8 g/dL (3.5-5.0); Alkaline Phosphatase 77 U/L (39-117); Anion Gap 14 (12-20); Aspartate Amino Transferase 24 U/L (5-31); Bilirubin Total 0.3 mg/dL (0.0-1.0); Blood Urea Nitrogen 12 mg/dL (9-16); Calcium 9.1 mg/dL (8.4-10.2); Carbon Dioxide 21 mmol/L (22-29); Chloride 108 mmol/L (96-108); Creatinine Clr Calc Pharmacy 132.2; Estimated Glomerular Filt Rate > 60; Glucose Random 90 mg/dL (60-115); Sodium 139 mmol/L (135-145); Total Protein 7.6 g/dL (6.5-8.0)
[2023-06-10 10:16] LABS: Troponin-I High Sensitivity < 2.7 ng/L (<3.5-17.0)
[2023-06-10 10:19] VITALS: BP 110/75; PULSE 59; RESP 18; O2SAT 100
[2023-06-10] MEDS: Butalb/Acetamin/Caff 50/325/40 TABLET 1 TAB PO (10:21)
[2023-06-10 10:40] LABS: C Reactive Protein 0.43 mg/dL (< or = 0.50)
[2023-06-10 10:57] LABS: HCG Quantitative < 2 mIU/mL; Thyroid Stimulating Hormone 1.47 uIU/mL (0.32-4.0)
[2023-06-10 11:11] LABS: Erythrocyte Sedimentation Rate 25 MM/HR (0-20)
[2023-06-10 11:50] LABS: Appearance Urine Clear; Color Urine Yellow; Glucose Urine UA Negative (Negative); Leukocyte Esterase Urine Negative (Negative); Nitrite Urine Negative (Negative); PH 7.5 (5.0-9.0); Specific Gravity - Urine 1.015 (1.005-1.025); Urine Blood Negative (Negative); Urine Ketones Negative (Negative); Urine Protein Negative (Neg-Trace)
[2023-06-10 11:52] LABS: UPreg QC Valid YES; Urine Pregnancy NEGATIVE (NEGATIVE)
== END 2023-06-10 12:47 | disposition home or self-care (01) ==
PROVIDERS: Emergency Provider Student in an Organized Health Care Education/Training Program; PCP Internal Medicine
DX: R51.9 Headache, unspecified (principal); R42 Dizziness and giddiness; H53.8 Other visual disturbances; I47.19 Other supraventricular tachycardia; Z11.52 Encounter for screening for COVID-19; Z20.822 Contact with and (suspected) exposure to COVID-19; Z79.899 Other long term (current) drug therapy
CPT/HCPCS: 36415; 80053; 81003; 81025; 84443; 84484; 84702; 85025; 85610; 85652; 86140; 87502; 87635; 93005; 99285

== ENCOUNTER 2023-08-09 09:38 | Outpatient (AMB) | payer OTHER, SELFPAY ==
--- NOTE | 2023-08-09 09:17 | A.OFFPC_ITS ---
Vital Signs 08/09/23 09:20 Height 5 ft 9 in Weight 202 lb 8 oz BMI 29.9 BP 108/70 Blood Pressure Location Lt brachial Position Sitting Pulse 61 Pulse Source Pulse Oximeter Pulse Oximetry (%) 99 Oxygen Delivery Method Room Air Intake Visit Reasons: Physical exam+ NEEDS PHQ9/THRIVE Intake Note: Pt is here for her Annual PE Is last menstrual period known: Yes Last menstrual period: 07/25/23 Allergies latex [LATEX] Allergy (Unknown, Verified 08/09/23 10:01) ITCHY Medication List - Last Reconciled 08/09/23 by Tiny Bear MD acetaminophen (Tylenol) 650 mg (2 x 325 mg) PO Q6H PRN ibuprofen 800 mg PO Q8H PRN propranolol 40 mg PO BID 30 days Tobacco use date assessed: 08/09/23 Dental Screening Dental Screen Date: 08/09/23 Did you have a dental visit in the last 12 months?: Yes Did you have a dental problem in the last 6 months where you did not have access to dental care?: No Was dental information given to patient?: Patient has dentist HPI Physical exam+ NEEDS PHQ9/THRIVE HPI Details 37-year-old lady here today for physical exam. Declines getting any vaccinations. Has been diagnosed with atrial tachycardia, seen by Cardiology and currently on propranolol which has been helping control her heart rate. Denies any chest pain , shortness of breath or lightheadedness. Has been having intermittent episodes of frontal headaches, accompanied by occasional nausea but no vomiting. History of abnormal Pap in the past, previously seen at [facility], now complaining of heavy menstrual bleeding, lasting more than 5 days, and accompanied by severe abdominal cramping . Please overdue for cervical cancer screening. [facility] Medical History (Updated 08/14/23 @ 11:34 by Tiny Bear MD) Schizophrenia Obesity (BMI 30-39.9) Abnormal Pap smear of cervix Migraine Dyslipidemia Atrial tachycardia Surgical History H/O exploratory laparotomy H/O abdominoplasty Hx of appendectomy Family History Paternal Uncle Schizophrenia Mental health disorder Mother Drug addiction Mother Substance use disorder Paternal Aunt Substance use disorder Social History Housing: House Alcohol intake: never Patient Tobacco Use Status: Never used Tobacco e-Cigarette/Vaping Use: Never Used service: No Current occupational status: employed Cognitive needs: No Hearing needs: No Vision needs: No Female Reproductive History Menstrual Date of last menstrual period: 07/25/23 Questionnaire PHQ-9 Over the last 2 weeks, how often have you been bothered by any of the following problems? 1. Little interest or pleasure in doing things: several days 2. Feeling down, depressed, or hopeless: not at all 3. Trouble falling or staying asleep, or sleeping too much: not at all 4. Feeling tired or having little energy: several days 5. Poor appetite or overeating: not at all 6. Feeling bad about yourself - or that you are a failure or have let yourself or your family down: not at all 7. Trouble concentrating on things, such as reading the newspaper or watching television: not at all 8. Moving or speaking so slowly that other people could have noticed. Or the opposite - being so fidgety or restless that you have been moving around a lot more than usual: not at all 9. Thoughts that you would be better off or of hurting yourself in some way: not at all Total score: 2 Depression Screening Interpretation: Negative (Has schizophrenia, currently followed at [facility]) Depression Screening Done: Yes 34431 - PHQ-9 Billing: Yes Source: Developed by Drs. Vladislav Voss, Ivelisse Cole, Loco Frausto and colleagues, with an educational diandra from [employer]. Thrive Questionnaire Date Thrive assessed: 08/09/23 I am a: Patient What is your living situation today?: I have a steady place to live Within the past 12 months, did the food you bought not last and you didn't have the money to get more?: Never true Within the past 12 months, did you worry whether your food would run out before you got money to buy more?: Never true Do you have trouble paying for medicines?: No Do you have trouble getting transportation to medical appointments?: No Do you have trouble paying your heating and electricity bill?: No Do you have trouble taking care of your child, family member or friend?: No Do you have trouble with day-to-day activities such as bathing, preparing meals, shopping, managing finances, etc.?: No Are you currently unemployed and looking for a job?: No Are you interested in more education?: No AUDIT C Alcohol Use Questionnaire (AUDIT-C) 1. How often do you have a drink containing alcohol?: Never Total Score: 0 ERIBERTO-7 AMB Questionnaire ERIBERTO-7 Date ERIBERTO - 7 assessed: 08/09/23 Feeling nervous, anxious, or on edge: 0 = Not at all Not being able to stop or control worryin = Not at all Worrying too much about different things: 1 = Several days Trouble relaxin = Several days Being so restless that it is hard to sit still: 1 = Several days Becoming easily annoyed or irritable: 1 = Several days Feeling afraid as if something awful might happen: 0 = Not at all Total ERIBERTO-7 score (0-4 normal; 5-9 mild; 10-14 moderate; 15-21 severe): 4 Source: Developed by Drs. Vladislav Voss, Ivelisse Cole, Loco Frausto and colleagues, with an educational diandra from [employer]. ERIBERTO-7 Assessment Billing ERIBERTO-7 Assessment Tool: ERIBERTO-7 Assessment 59252 Review of Systems Const Reports as per HPI, Reports difficulty sleeping, Denies fatigue, Denies fever(s), Reports lethargy, Reports malaise and Denies weakness Eyes Details: Goes to [facility] yearly Denies change in vision, Denies eye discharge and Denies itchy eyes ENT Denies dizziness, Denies nasal congestion, Denies nasal discharge and Denies sore throat Card Denies chest pain, Denies chest pain with activity, Denies syncope, Denies lightheadedness and Denies dyspnea Resp Denies chest congestion, Denies cough, Denies dyspnea and Denies wheezing GI Denies abdominal pain, Denies change in bowel habits and Denies heartburn Reports as per HPI, Denies hematuria and Denies dysuria Musc Reports as per HPI Skin/Breast Denies breast pain, Denies breast mass, Denies lesions and Denies rash Neuro Reports as per HPI, Denies dizziness, Denies syncope and Denies weakness Psych Reports no additional complaints Endo Denies fatigue and Denies polydipsia Jorje/Lymph Denies easy bruising Aller/Immun Denies itchy eyes, Denies seasonal rhinorrhea and Denies wheezing Physical exam (Primary Care) Vital Signs: Last Vital Signs Pulse 61 08/09/23 09:20 BP 108/70 08/09/23 09:20 Pulse Ox 99 08/09/23 09:20 Oxygen Delivery Method Room Air 08/09/23 09:20 BMI result Body Mass Index 29.9 Tobacco/Smoking Status: Tobacco use Status Tobacco use date assessed 08/09/23 08/09/23 09:53 Patient Tobacco Use Status Never used Tobacco 08/09/23 09:18 e-Cigarette/Vaping Use Never Used 08/09/23 09:18 PHQ-9: PHQ-9 Score PHQ-9: Total score 2 08/09/23 10:25 Depression Screening Interpretation: Negative (Has schizophrenia, currently followed at [facility]) Thrive Assessment: Date of Thrive Assessment Date Thrive assessed 08/09/23 08/09/23 10:04 Const Other: Alert oriented x3, no acute distress noted, ambulatory with normal gait HENMT Head: Yes normocephalic and Yes atraumatic Ears: external ears normal, TM's normal bilaterally and EAC's normal General nose exam: Normal external nose present Face and sinus: Yes face symmetric Mouth: Normal oral and palatal mucosa present, oropharynx normal and moist mucous membranes Eyes General: appearance normal, both eyes and all related structures Conjunctivae: conjunctivae normal Sclerae: sclerae normal Pupils: Equal, round and reactive pupils present EOM: EOMs intact bilaterally Neck Neck: Yes full ROM, Yes no lymphadenopathy and Yes supple Thyroid: Thyroid normal (Nonpalpable) Chest Chest palpation & inspection: normal inspection of the chest and normal palpation of entire chest wall Breast/axilla palpation: normal palpation of the breasts Resp Auscultation: clear to auscultation bilaterally Cardio Other: S1-S2 present regular rate and rhythm GI Other: Normal bowel sounds, soft, nontender with no mass palpated General: Yes no CVA tenderness Back/Spine/Pelvis Back: no CVA tenderness Skin General skin exam: no rashes or lesions noted Neuro Cranial nerves: Yes Equal, round and reactive pupils present Extrem General: Yes normal to inspection, Yes full ROM, Yes no joint enlargement and Yes normal gait Psych Appearance: grossly normal and well kempt Speech and movement: Normal speech and movement present Affect: normal affect Attitude: cooperative Assessment and Plan Assessment & Plan (1) Annual visit for general adult medical examination with abnormal findings: Code(s): Z00.01 - Encounter for general adult medical examination with abnormal findings Plan: Will check appropriate labs. Recommended dental visit every 6 months and regular eye exams, at least every 2 years. Take adequate calcium in diet and vitamin-D 3 at 2000 IU per cap once a day, in addition to weight-bearing exercises to help maintain good muscle tone and weight control. Instructed to do self-breast exam, and recommended to get yearly mammogram, starting at age 40. Declined immunizations. Referred to OBGYN for her routine Pap and pelvic exam, has history of abnormal Pap in the past. (2) Cervical cancer screening: Code(s): Z12.4 - Encounter for screening for malignant neoplasm of cervix Plan: Has history of abnormal Pap in the past, referred back to [facility] for further evaluation, overdue for her cervical cancer screening (3) Heavy menstrual bleeding: Code(s): N92.0 - Excessive and frequent menstruation with regular cycle Qualifiers: Menorrhagia type: with regular cycle Qualified Code(s): N92.0 - Excessive and frequent menstruation with regular cycle Plan: Referred to OBGYN for further evaluation, CBC and iron profile ordered (4) Dysmenorrhea: Code(s): N94.6 - Dysmenorrhea, unspecified Plan: OBGYN consult obtain (5) Frontal headache: Code(s): R51.9 - Headache, unspecified Plan: Prescription sent for sumatriptan to take as directed (6) Costovertebral angle tenderness: Code(s): M54.9 - Dorsalgia, unspecified (7) Schizophrenia: Comment: Seen at the [facility] Code(s): F20.9 - Schizophrenia, unspecified (8) Migraine: Code(s): G43.909 - Migraine, unspecified, not intractable, without status migrainosus Qualifiers: Migraine type: migraine (< 15 days per month) without aura Status migrainosus presence: without status migrainosus Intractability: not intractable Qualified Code(s): G43.009 - Migraine without aura, not intractable, without status migrainosus Plan: Prescription sent for sumatriptan to take as directed (9) Dyslipidemia: Code(s): E78.5 - Hyperlipidemia, unspecified Plan: Fasting lipid panel ordered , stressed adherence to low-cholesterol diet and regular exercise, at least 30 minutes 3 to 4 times a week. Advised patient to make healthy food choices, eat more fruits, vegetables, whole grains, wild caught fish and low-fat dairy. Limit amount of meat and fried or fatty food products, as well as processed foods and fast foods. (10) Atrial tachycardia: Comment: Followed by [facility] cardiology Code(s): I47.1 - Supraventricular tachycardia Plan: Continue propranolol Orders: Orders Complete Blood Count Auto Diff 08/09/23 N92.0 - Excessive and frequent menstruation with regular cycle, N94.6 - Dysmenorrhea, unspecified, R51.9 - Headache, unspecified, Z00.01 - Encounter for general adult medical examination with abnormal findings Lipid Panel 08/09/23 M54.9 - Dorsalgia, unspecified, Z00.01 - Encounter for general adult medical examination with abnormal findings IRON PROFILE 08/09/23 N92.0 - Excessive and frequent menstruation with regular cycle, N94.6 - Dysmenorrhea, unspecified, R51.9 - Headache, unspecified, Z00.01 - Encounter for general adult medical examination with abnormal findings Referrals [facility] Referral N92.0 - Excessive and frequent menstruation with regular cycle, N94.6 - Dysmenorrhea, unspecified, Z12.4 - Encounter for screening for malignant neoplasm of cervix Medications: New sumatriptan succinate take 1 tab at onset of headache; if no relief, may repeat 1 tab after at least 2 hrs; max = 2 tabs/24 hrs PO 10 tabs 0RF Refilled propranolol 40 mg PO BID 30 days 60 tabs 0RF Coding Level of Care Code Est Pt Prev Care 18-39y(59316) Diagnoses Annual visit for general adult medical examination with abnormal findings Z00.01 Cervical cancer screening Z12.4 Menorrhagia with regular cycle N92.0 Menorrhagia type: with regular cycle Dysmenorrhea N94.6 Frontal headache R51.9 Costovertebral angle tenderness M54.9 Schizophrenia F20.9 Migraine without aura and without status migrainosus, not intractable G43.009 Migraine type: migraine (< 15 days per month) without aura Status migrainosus presence: without status migrainosus Intractability: not intractable Dyslipidemia E78.5 Atrial tachycardia I47.1 Additional Codes ERIBERTO-7 Assessment Billing - ERIBERTO-7 Assessment Tool: ERIBERTO-7 Assessment 35998 ([id number])
[2023-08-09 09:20] VITALS: BP 108/70; PULSE 61; O2SAT 99; BMI 29.9
== END 2023-08-09 11:01 | disposition home or self-care (01) ==
PROVIDERS: PCP Internal Medicine; Visit Provider Internal Medicine
DX: Z00.01 Encounter for general adult medical examination with abnormal findings (principal); R51.9 Headache, unspecified; F20.9 Schizophrenia, unspecified; I47.1 Supraventricular tachycardia; N92.0 Excessive and frequent menstruation with regular cycle; N94.6 Dysmenorrhea, unspecified; M54.9 Dorsalgia, unspecified; G43.009 Migraine without aura, not intractable, without status migrainosus; E78.5 Hyperlipidemia, unspecified
CPT/HCPCS: 99213; 99395

== ENCOUNTER 2023-09-04 12:58 | Outpatient (REF) | payer OTHER, SELFPAY ==
[2023-09-04 16:03] LABS: MANUAL DIFF FLAG NO
[2023-09-04 16:09] LABS: Basophils Percent Auto 0.8 % (0-2); Eosinophils Absolute Auto 0.1 X10*3/uL (0.0-0.4); Eosinophils Percent Auto 1.4 % (0-4); Hematocrit 38.1 % (37.0-47.0); Hemoglobin 12.5 g/dl (12.0-16.0); Imm Gran Abs Auto 0.01 X10*3/uL (0.00-0.03); Imm Gran Pct Auto 0.2 % (0.0-0.4); Lymphocytes Absolute Auto 1.9 X10*3/uL (1.2-4.9); Lymphocytes Percent Auto 37.7 % (20-40); Mean Corpuscular HGB Conc 32.8 g/dl (31.0-35.0); Mean Corpuscular Hemoglobin 30.6 pg (27.0-33.0); Mean Corpuscular Volume 93.2 fL (80.0-98.0); Mean Platelet Volume 9.1 fL (9.4-12.3); Monocytes Absolute Auto 0.8 X10*3/uL (0.1-1.2); Neutrophils Absolute Auto 2.1 x10*3/uL (2.0-8.3); Neutrophils Percent Auto 42.9 % (45-73); Platelet Count 235 X10*3/uL (160-400); Red Blood Count 4.09 X10*6/uL (4.20-5.50); Red Cell Distribution Width 11.6 % (11.0-16.0); White Blood Count 4.9 X10*3/uL (4.8-10.8)
[2023-09-04 16:20] LABS: Cholesterol 190 mg/dL (<200); HDL Cholesterol 37 mg/dL (>40); Iron 74 mcg/dL (30-160); LDL Cholesterol Calculated 136 mg/dL (<100); Percent Iron Saturation 27 % (15-50); Total Iron Binding Capacity 272 mcg/dL (228-428); Triglycerides 86 mg/dL (<150); Unsaturated Iron Binding 198 ug/dL
== END 2023-09-04 12:59 | disposition home or self-care (01) ==
LOC: HO.HMGCLDS 12:58
PROVIDERS: PCP Internal Medicine; Visit Provider Internal Medicine
DX: Z00.01 Encounter for general adult medical examination with abnormal findings (principal); N92.0 Excessive and frequent menstruation with regular cycle; N94.6 Dysmenorrhea, unspecified; R51.9 Headache, unspecified; M54.9 Dorsalgia, unspecified
CPT/HCPCS: 36415; 80061; 83540; 85025

== ENCOUNTER 2023-09-12 09:33 | Outpatient (AMB) | payer OTHER, SELFPAY ==
--- NOTE | 2023-09-12 09:35 | A.OFFPC_ITS ---
Vital Signs 09/12/23 09:36 Height 5 ft 9 in Weight 206 lb BMI 30.4 BP 100/72 Blood Pressure Location Lt brachial Position Sitting Pulse 68 Pulse Source Pulse Oximeter Pulse Oximetry (%) 68 L Oxygen Delivery Method Room Air Intake Visit Reasons: Followup headaches Intake Note: Pt is here today to f/u H/A Allergies latex [LATEX] Allergy (Unknown, Verified 09/13/23 04:32) ITCHY Medication List - Last Reconciled 09/13/23 by Tiny Bear MD acetaminophen (Tylenol) 650 mg (2 x 325 mg) PO Q6H PRN ibuprofen 800 mg PO Q8H PRN propranolol 40 mg PO BID sumatriptan succinate take 1 tab at onset of headache; if no relief, may repeat 1 tab after at least 2 hrs; max = 2 tabs/24 hrs PO Tobacco use date assessed: 09/12/23 Dental Screening Dental Screen Date: 09/12/23 HPI Followup headaches HPI Details 37-year-old lady here today complaining of worsening frontal headache. Has had headaches in the past, diagnosed with migraine, currently on propranolol for prophylaxis and takes acetaminophen occasional ibuprofen and sumatriptan, which now has not afforded any relief. Patient states that her headaches are occurring daily mainly on the frontal aspect of her head above eyee, accompanied by photophobia, nausea and has been having occasional diplopia. She had recent fasting labs done which showed presence of elevated LDL cholesterol. [facility] Medical History (Updated 09/12/23 @ 10:18 by Tiny Bear MD) Chronic headache Schizophrenia Obesity (BMI 30-39.9) Abnormal Pap smear of cervix Dyslipidemia Atrial tachycardia Surgical History H/O exploratory laparotomy H/O abdominoplasty Hx of appendectomy Family History Paternal Uncle Schizophrenia Mental health disorder Mother Drug addiction Mother Substance use disorder Paternal Aunt Substance use disorder Social History Housing: House Alcohol intake: never Patient Tobacco Use Status: Never used Tobacco e-Cigarette/Vaping Use: Never Used service: No Current occupational status: employed Cognitive needs: No Hearing needs: No Vision needs: No Questionnaire PHQ-9 Over the last 2 weeks, how often have you been bothered by any of the following problems? 1. Little interest or pleasure in doing things: nearly every day 2. Feeling down, depressed, or hopeless: more than half the days 3. Trouble falling or staying asleep, or sleeping too much: not at all 4. Feeling tired or having little energy: nearly every day 5. Poor appetite or overeating: not at all 6. Feeling bad about yourself - or that you are a failure or have let yourself or your family down: not at all 7. Trouble concentrating on things, such as reading the newspaper or watching television: not at all 8. Moving or speaking so slowly that other people could have noticed. Or the opposite - being so fidgety or restless that you have been moving around a lot more than usual: not at all 9. Thoughts that you would be better off or of hurting yourself in some way: not at all Total score: 8 Depression Screening Interpretation: Positive Depression Screening Follow-up: Existing condition and In treatment (Currently being seen at the [facility]) Depression Screening Done: Yes 72328 - PHQ-9 Billing: Yes Source: Developed by Drs. Vladislav Voss, Ivelisse Cole, Loco Frausto and colleagues, with an educational diandra from [employer]. Thrive Questionnaire Date Thrive assessed: 09/12/23 I am a: Patient What is your living situation today?: I have a steady place to live Within the past 12 months, did the food you bought not last and you didn't have the money to get more?: Never true Within the past 12 months, did you worry whether your food would run out before you got money to buy more?: Never true Do you have trouble paying for medicines?: No Do you have trouble getting transportation to medical appointments?: No Do you have trouble paying your heating and electricity bill?: No Do you have trouble taking care of your child, family member or friend?: No Do you have trouble with day-to-day activities such as bathing, preparing meals, shopping, managing finances, etc.?: No Are you currently unemployed and looking for a job?: No Are you interested in more education?: No THRIVE Score: 0 AUDIT C Alcohol Use Questionnaire (AUDIT-C) 1. How often do you have a drink containing alcohol?: Never Total Score: 0 ERIBERTO-7 AMB Questionnaire ERIBERTO-7 Date ERIBERTO - 7 assessed: 09/12/23 Feeling nervous, anxious, or on edge: 0 = Not at all Not being able to stop or control worryin = Nearly every day Worrying too much about different things: 3 = Nearly every day Trouble relaxin = Nearly every day Being so restless that it is hard to sit still: 0 = Not at all Becoming easily annoyed or irritable: 3 = Nearly every day Feeling afraid as if something awful might happen: 1 = Several days Total ERIBEROT-7 score (0-4 normal; 5-9 mild; 10-14 moderate; 15-21 severe): 13 Source: Developed by Drs. Vladislav Voss, Ivelisse Cole, Loco Frausto and colleagues, with an educational diandra from [employer]. ERIBERTO-7 Assessment Billing ERIBERTO-7 Assessment Tool: ERIBERTO-7 Assessment 23936 (Followed by psychiatry ) Review of Systems Const Denies difficulty sleeping, Reports lethargy, Reports malaise and Denies weakness Eyes Reports diplopia (intermittent ), Denies loss of vision, Reports photophobia and Reports spots in vision ENT Reports no additional complaints Card Denies chest pain, Denies syncope and Denies irregular heart rhythm Resp Reports no additional complaints GI Reports as per HPI and Reports no additional complaints Musc Reports no additional complaints, Denies abnormal gait and Denies numbness Neuro Reports as per HPI, Denies Neuro-related abnormal movements, Denies Abnormal speech present, Denies abnormal gait, Denies confusion, Denies syncope, Denies loss of vision, Denies numbness, Denies seizure-like activity, Denies Sensory deficit (Neuro) and Denies weakness Psych Denies confusion Physical exam (Primary Care) Vital Signs: Last Vital Signs Pulse 68 09/12/23 09:36 BP 100/72 09/12/23 09:36 Pulse Ox 68 L 09/12/23 09:36 Oxygen Delivery Method Room Air 09/12/23 09:36 BMI result Body Mass Index 30.4 Tobacco/Smoking Status: Tobacco use Status Tobacco use date assessed 09/12/23 09/12/23 09:38 Patient Tobacco Use Status Never used Tobacco 09/12/23 09:38 e-Cigarette/Vaping Use Never Used 09/12/23 09:38 PHQ-9: PHQ-9 Score PHQ-9: Total score 8 09/13/23 04:11 Depression Screening Interpretation: Positive Depression Screening Follow-up: Existing condition and In treatment (Currently being seen at the [facility]) Thrive Assessment: Date of Thrive Assessment Date Thrive assessed 09/12/23 09/12/23 10:09 Const Other: Alert oriented x3, no acute distress noted, ambulatory with normal gait General: No confusion Orientation/consciousness: patient oriented x3 and No confusion HENMT Head: Yes normocephalic and Yes atraumatic Ears: external ears normal, TM's normal bilaterally and EAC's normal General nose exam: Normal external nose present Face and sinus: Yes face symmetric Mouth: Normal oral and palatal mucosa present, oropharynx normal and moist mucous membranes Eyes General: appearance normal, both eyes and all related structures Conjunctivae: conjunctivae normal Sclerae: sclerae normal Pupils: Equal, round and reactive pupils present EOM: EOMs intact bilaterally Direct Ophthalmoscopy: photophobia Neck Neck: Yes full ROM, Yes no lymphadenopathy, Yes no meningeal signs and Yes supple Thyroid: Thyroid normal (Nonpalpable) Resp Auscultation: clear to auscultation bilaterally Cardio Other: S1-S2 present regular rate and rhythm GI Other: Normal bowel sounds, soft, nontender with no mass palpated Skin General skin exam: no rashes or lesions noted Neuro General: patient oriented x3, gait normal, tone normal, moves all extremities, Normal light touch and pain sensation, no meningeal signs, no focal motor deficits, CN's II-XI intact bilaterally and No confusion Cranial nerves: Yes Equal, round and reactive pupils present Speech: No Abnormal speech present Sensory Exam: No Sensory deficit (Neuro) Extrem General: Yes normal to inspection, Yes full ROM, Yes no joint enlargement and Yes normal gait Psych Appearance: grossly normal and well kempt Speech and movement: Normal speech and movement present Affect: normal affect Attitude: cooperative Results Reviewed Results Reviewed: Laboratory Tests 09/04/23 13:02 WBC 4.9 Hgb 12.5 Hct 38.1 Plt Count 235 RUN: 09/12/23 1019 PAGE 1 [facility] [address] [place] [id number] Anesthesia Attending: Dioni Donohue M.D. Specimen Inquiry Name: Patsy Urrutia Age/Sex: 37/F : 1985 Unit#: [id number] Attend Dr: Tiny Bear MD Re09/04/23 Status: DEP [facility] Disch: SPEC : [id number] JOY: 09/04/23 STATUS: COMP REQ : [id number] RECD: 09/04/[address]: Tiny Bear MD COMP: 09/04/23 ENTERED: 09/04/23-[address]: ORDERED: IRON PROF, Lipid Panel Test Result Flag Reference Iron 74 30-160 mcg/dL TIBC 272 228-428 mcg/dL Saturation 27 15-50 % UIBC 198 ug/dL Triglyceride 86 <150 mg/dL Desirable Triglyceride: less than 150 mg/dL Borderline High Triglyceride 150-199 mg/dL High Triglyceride: 200-499 mg/dL Very High Triglyceride: greater than or equal to 5OO mg/dL Cholesterol 190 <200 mg/dL Desirable Cholesterol: less than 200 mg/dL Borderline High Cholesterol: 200-239 mg/dL High Cholesterol: greater than 239 mg/dL LDL Calculated 136 H <100 mg/dL Desirable LDL: less than 100 mg/dL Near Optimal/Above Optimal LDL: 110-129 mg/dL Borderline High LDL: 130-159 mg/dL High LDL: 160-189 mg/dL Very High LDL: greater than or equal to 190 mg/dL HDL 37 L >40 mg/dL Desirable HDL: greater than 40 mg/dL Note: This HDL assay may give artificially low results in patients with liver disease. Assessment and Plan Assessment & Plan (1) Chronic headache: Code(s): R51.9 - Headache, unspecified; G89.29 - Other chronic pain Qualifiers: Headache type: unspecified Intractability: intractable Qualified Code(s): R51.9 - Headache, unspecified; G89.29 - Other chronic pain Plan: No improvement with prophylactic dose of propranolol, or with sumatriptan. Ordered MR angiogram , rule out presence of aneurysm (2) Dyslipidemia: Code(s): E78.5 - Hyperlipidemia, unspecified Plan: Reviewed recent fasting lipid profile with patient with high LDL cholesterol. . Stressed importance of adherence to a low-cholesterol diet and to regular exercise, at least 30 minutes 3 to 4 times a week. Advised patient to make healthy food choices, eat more fruits, vegetables, whole grains, wild caught fish and low-fat dairy. Limit amount of meat and fried or fatty food products, as well as processed foods and fast foods. Orders: Orders MR angio head wo con 09/12/23 G89.29 - Other chronic pain, R51.9 - Headache, unspecified Coding Level of Care Code Est Pt Level 3 (94987) Diagnoses Chronic intractable headache, unspecified headache type R51.9; G89.29 Headache type: unspecified Intractability: intractable Dyslipidemia E78.5 Additional Codes ERIBERTO-7 Assessment Billing - ERIBERTO-7 Assessment Tool: ERIBERTO-7 Assessment 53581 ([id number])
[2023-09-12 09:36] VITALS: BP 100/72; PULSE 68; O2SAT 68; BMI 30.4
== END 2023-09-12 11:07 | disposition home or self-care (01) ==
PROVIDERS: PCP Internal Medicine; Visit Provider Internal Medicine
DX: R51.9 Headache, unspecified (principal); G89.29 Other chronic pain; E78.5 Hyperlipidemia, unspecified
CPT/HCPCS: 99213

== ENCOUNTER 2023-09-17 15:04 | Outpatient (AMB) | payer OTHER, SELFPAY ==
[2023-09-17 15:46] VITALS: BP 114/72; PULSE 66; BMI 30.8
--- NOTE | 2023-09-17 15:46 | MHC.OFFVIS ---
Intake Vital Signs 09/17/23 15:46 Height 5 ft 9 in Weight 208 lb 5.389 oz BMI 30.8 BP 114/72 Blood Pressure Location Lt brachial Position Sitting Pulse 66 Pulse Source Monitor Intake Visit Reasons: cardiac clearance Occupational Therapy Co Director Required: No Allergies latex [LATEX] Allergy (Unknown, Verified 09/17/23 15:48) ITCHY Medication List - Last Reconciled 09/17/23 by Ivette Khan, [place] propranolol 40 mg PO BID sumatriptan succinate take 1 tab at onset of headache; if no relief, may repeat 1 tab after at least 2 hrs; max = 2 tabs/24 hrs PO HPI cardiac clearance HPI Details Patsy is a 37-year-old female with past medical history of hyperlipidemia, atrial tachycardia who presents for follow-up. Today she reports ongoing issues with heart palpitations. She tells me it can occur 3-4 times weekly and last up to an hour or more. She has clocked her heart rate at over 200 per. She tries to just relax and slow her breathing till her heart rate goes back to normal. She has not aware of any clear triggers. She has been taking her propanolol only once daily. She did not attend her prior EP appointment as she was fearful of getting an ablation. She is now more acceptance of this and says she will attend. She has no chest discomfort, lightheadedness, presyncope, syncope, falls. No PND, orthopnea or edema. She drinks 1 caffeinated beverage most days. [facility] Medical History (Updated 09/12/23 @ 10:18 by Tiny Bear MD) Chronic headache Schizophrenia Obesity (BMI 30-39.9) Abnormal Pap smear of cervix Dyslipidemia Atrial tachycardia Surgical History H/O exploratory laparotomy H/O abdominoplasty Hx of appendectomy Family History Paternal Uncle Schizophrenia Mental health disorder Mother Drug addiction Mother Substance use disorder Paternal Aunt Substance use disorder Social History Housing: House Alcohol intake: never Patient Tobacco Use Status: Never used Tobacco e-Cigarette/Vaping Use: Never Used service: No Current occupational status: employed Cognitive needs: No Hearing needs: No Vision needs: No Review of Systems Const All systems reviewed & are unremarkable except as noted in HPI and below ENT Denies dizziness Card Reports chest pain, Denies chest pain at rest, Denies chest pain with activity, Reports rapid heart rate, Denies pedal edema, Denies edema, Denies leg edema, Denies lightheadedness, Reports palpitations, Reports dyspnea, Reports dyspnea on exertion and Reports orthopnea Resp Denies cough, Reports dyspnea and Reports dyspnea on exertion GI Denies hematochezia and Denies change in stool character Musc Denies abnormal gait, Denies limited range of motion, Denies muscle cramps, Denies muscle weakness, Denies numbness, Denies radiating pain into limb, Denies stiffness and Denies tingling Neuro Denies abnormal gait, Denies dizziness, Denies numbness and Denies tingling Endo Reports palpitations Physical Exam Vital Signs: Last Vital Signs Pulse 66 09/17/23 15:46 BP 114/72 09/17/23 15:46 BMI result Body Mass Index 30.8 Const General: cooperative, healthy appearing, comfortable and no acute distress Orientation/consciousness: patient oriented x3 Neck Neck: Yes normal visual inspection and Yes no JVD Resp Effort & Inspection: normal respiratory effort Auscultation: clear to auscultation bilaterally, no crackles, no rales, no rhonchi and no wheezes Cardio Jugular venous distension: no JVD Rate: regular rate Rhythm: regular rhythm Heart sounds: S1 normal heart sound present, S2 normal heart sound present, no murmurs and no rubs Neuro General: patient oriented x3 Extrem General: Yes normal to inspection, No no pedal edema and No calf tenderness Psych Appearance: grossly normal Mental Status: mental status grossly normal Speech and movement: Normal speech and movement present Office Procedures EKG Details: Today, read by me, normal sinus rhythm, no acute ST or T-wave abnormalities, rate 66, QTC 435 milliseconds [id number], Complete Assessment & Plan Assessment & Plan (1) Atrial tachycardia: Comment: Followed by [facility] cardiology Code(s): I47.1 - Supraventricular tachycardia Plan: History of atrial tachycardia with prior ER visits, an EKGs confirming rhythm. She has been on propanolol. Last echo 05/31/2018 shows normal EF, no valve abnormalities. Last Holter monitor done 10/24/2021 for 7 days shows sinus rhythm with average heart rate 74, rare PACs. She had previously been referred to electrophysiology and it appears she no showed for appointments in 2018 and 2021. She tells me she did not go because she was afraid of getting an ablation. Her symptoms have been persistent and currently occurring 3 to 4 times a week lasting up to 60 minutes. She says her heart rate frequently is up to 200 per minute. She is taking her propanolol but admits it is only once daily. She has not had any presyncope, syncope, falls. She does have mild shortness of breath with her symptom. She is frustrated and feels this symptom is affecting her normal life. Will increase her propanolol up to 60 mg and change it to extended release. She has not interested in b.i.d. dosing. Instructed on reduction in caffeinated beverages. Reviewed vagal maneuvers with her in detail. Will check a Holter monitor to confirm rhythm again. Will refer to electrophysiology however she does not want an appointment until mid October. She plans on having plastic surgery in the [facility] [place] on 10/15/2023. Informed her that she may have issues with tachycardia during the procedure and she states understanding. Risks of having surgery while having tachycardia discussed. Recommend that she hold off however she tells me it is already scheduled. EKG done today showing normal sinus rhythm with no acute ST or T-wave abnormalities, rate 66. Plan to call her with Holter results. Cardiology office visit in 6 months, sooner if needed. Emergency care if needed for symptoms (2) Palpitation: Code(s): R00.2 - Palpitations Plan: As above, checking Holter to reconfirm rhythm. (3) Preoperative cardiovascular examination: Code(s): Z01.810 - Encounter for preprocedural cardiovascular examination Plan: She has preop for abdominoplasty, elective cosmetic surgery in the [place], scheduled already for 10/14/2022. Since surgery is elective it is not recommended that she proceed while having ongoing issues with atrial tachycardia. I have increased her propanolol dose. She tells me that medical exam is done in the [place] prior to surgery. Copy of EKG given. Patient informed that she may have recurrent tachycardia or other cardiac issues in the perioperative time and she states understanding. She tells me she has had surgeries in the past without any complications. Plan Time spent on chart review, documentation assessment Orders: Orders ECG 3 day holter monitor 09/17/23 I47.1 - Supraventricular tachycardia Referrals Cardiac Electrophysiology Referral I47.1 - Supraventricular tachycardia Medications: New propranolol ER 60 mg PO DAILY 30 caps 5RF Discontinued propranolol Discontinued Reason: Doctor's Order 40 mg PO BID 180 tabs 0RF Coding Level of Care Code Est Pt Level 4 (51070) Diagnoses Atrial tachycardia I47.1 Palpitation R00.2 Preoperative cardiovascular examination Z01.810 CPT Codes EKG - CPT: 54548-Dlelinpldogvypsua, Complete ([id number]) Time Spent (min) 28
== END 2023-09-17 16:19 | disposition home or self-care (01) ==
PROVIDERS: PCP Internal Medicine; Visit Provider Nurse Practitioner Family
DX: I47.10 Supraventricular tachycardia, unspecified (principal)
CPT/HCPCS: 93010; 99214

== ENCOUNTER → 2023-09-17 15:04 | Outpatient (BNVA) | payer OTHER, SELFPAY | PROVIDERS: PCP Internal Medicine; Visit Provider Nurse Practitioner Family | DX: Z01.810 Encounter for preprocedural cardiovascular examination (principal); I47.10 Supraventricular tachycardia, unspecified; R00.2 Palpitations; Z79.899 Other long term (current) drug therapy | CPT/HCPCS: 93005; 99212 ==

== ENCOUNTER → 2023-10-03 10:00 | Outpatient (REF) | payer OTHER, SELFPAY ==
--- NOTE | 2023-10-03 10:03 | HM_ITS ---
Conclusion: 1. Patient was monitored for total period of 3 days 2. Baseline was normal sinus rhythm with average heart rate of 74 beats per minute 3. No significant pauses or arrhythmias noted 4. No patient reported events MTDD
== END ==
LOC: HO.CARD 10:00
PROVIDERS: PCP Internal Medicine; Visit Provider Nurse Practitioner Family
DX: I47.10 Supraventricular tachycardia, unspecified (principal)
CPT/HCPCS: 93242

== ENCOUNTER → 2023-10-03 10:03 | Outpatient (BNV) | payer OTHER, SELFPAY | PROVIDERS: PCP Internal Medicine; Visit Provider Internal Medicine Cardiovascular Disease | DX: I47.19 Other supraventricular tachycardia (principal) | CPT/HCPCS: 93244 ==

== ENCOUNTER 2024-04-08 13:38 | Outpatient (AMB) | payer OTHER, SELFPAY ==
[2024-04-08 13:42] VITALS: BP 120/64; PULSE 68; BMI 28.9
--- NOTE | 2024-04-08 13:42 | A.OFFVIS_ITS ---
Vital Signs 04/08/24 13:42 Height 5 ft 9 in Weight 195 lb 12.328 oz BMI 28.9 BP 120/64 Blood Pressure Location Lt brachial Position Sitting Pulse 68 Pulse Source Pulse Oximeter Intake Visit Reasons: 6 month f/u rs Intake Note: 6 mth f/up Customer Response Representative Required: No Accompanied by: Self / Same As Patient Allergies latex [LATEX] Allergy (Unknown, Verified 09/17/23 15:48) ITCHY Medication List - Last Reconciled 04/08/24 by Ivette Khan NP-C propranolol ER 60 mg PO DAILY sumatriptan succinate take 1 tab at onset of headache; if no relief, may repeat 1 tab after at least 2 hrs; max = 2 tabs/24 hrs PO HPI HPI 6 month f/u rs: Details: Patsy is a 38-year-old female with past medical history of hyperlipidemia, atrial tachycardia who presents for follow-up. Today she reports that she has been doing better recently. She is noticing less heart palpitations. She has not been taking her propranolol daily. She only takes it when she notices palpitations. At most she will take it a couple times a week. She has not had any prolonged episodes, no recent ER visits. She did not make an appointment with the photographic specialist. At this visit she is ask ing if she really needs to. She gets 1 [employer] coffee 3 times a week. She did have her cosmetic surgery in the [place] and tells me she had complications of bleeding and required 2 blood transfusions. She has fully recovered. No shortness of breath, PND, orthopnea or edema. No lightheadedness, presyncope, syncope, falls. No chest discomfort at rest or with activity. No routine exercise. [facility] Medical History Chronic headache Schizophrenia Obesity (BMI 30-39.9) Abnormal Pap smear of cervix Dyslipidemia Atrial tachycardia Surgical History H/O exploratory laparotomy H/O abdominoplasty Hx of appendectomy Family History Paternal Uncle Schizophrenia Mental health disorder Mother Drug addiction Mother Substance use disorder Paternal Aunt Substance use disorder Social History Housing: House Alcohol intake: never Patient Tobacco Use Status: Never used Tobacco e-Cigarette/Vaping Use: Never Used service: No Current occupational status: employed Cognitive needs: No Hearing needs: No Vision needs: No Review of Systems Const All systems reviewed & are unremarkable except as noted in HPI and below Denies chills, Denies fatigue, Denies fever(s), Denies frequent falls, Denies weakness, Denies weight gain and Denies weight loss ENT Denies dizziness Card Details: palpitations Denies chest pain, Reports rapid heart rate, Denies leg edema, Denies lightheadedness, Denies palpitations, Denies dyspnea and Denies dyspnea on exertion Resp Denies cough, Denies dyspnea and Denies dyspnea on exertion GI Denies hematochezia Musc Denies abnormal gait, Denies muscle weakness, Denies numbness, Denies radiating pain into limb and Denies tingling Neuro Denies abnormal gait, Denies dizziness, Denies frequent falls, Denies numbness, Denies tingling and Denies weakness Endo Denies fatigue and Denies palpitations Physical Exam Vital Signs: Last Vital Signs Pulse 68 04/08/24 13:42 BP 120/64 04/08/24 13:42 BMI result Body Mass Index 28.9 Const General: cooperative, healthy appearing, comfortable and no acute distress Orientation/consciousness: patient oriented x3 Neck Neck: Yes normal visual inspection Resp Effort & Inspection: normal respiratory effort Auscultation: clear to auscultation bilaterally, no crackles, no rales, no rhonchi and no wheezes Cardio Jugular venous distension: no JVD Rate: regular rate Rhythm: regular rhythm Heart sounds: S1 normal heart sound present, S2 normal heart sound present, no murmurs and no rubs Neuro General: patient oriented x3 Extrem General: Yes normal to inspection, No no pedal edema and No calf tenderness Psych Appearance: grossly normal Mental Status: mental status grossly normal Speech and movement: Normal speech and movement present Assessment & Plan Assessment & Plan (1) Atrial tachycardia: Comment: [place] [facility] [place] Code[place]s): I47.1 - Supraventricular tachycardia Category: Medical Plan: History of atrial tachycardia with prior ER visits, an EKGs confirming rhythm. She has been on propanolol. Last echo 05/31/2018 shows normal EF, no valve abnormalities. She had previously been referred to electrophysiology and it appears she no showed for appointments in 2018 and 2021. On last visit she had reported heart palpitations in her propranolol dose was increased to 60 mg daily from 40 mg daily. A repeat Holter monitor was done on 10/03/2023 for 3 days showing sinus rhythm with average heart rate 74, no atrial tach recorded. Today she reports that she has been getting less heart palpitations. She admits to only taking the propranolol a few times weekly and when she notices some palpitations. She has not had sustained rapid palpitations as long as the episodes she had previously reported. On last visit she was referred back to the electric neurologist and she tells me she did not make an appointment. She is drinking caffeinated beverages at least 3 times weekly. Spent time again reviewing vagal maneuvers with her. Instructed to take propranolol daily. Will hold off on pursuing EP referral at this time. Instructed on reduction in caffeinated beverages. Cardiology office visit in 6 months, sooner if needed. Emergency care if needed for symptoms (2) Palpitation: Code(s): R00.2 - Palpitations Category: Medical Plan: As above Plan Time spent on chart review, documentation assessment Coding Level of Care Code Est Pt Level 3 (04153) Diagnoses Atrial tachycardia I47.1 Palpitation R00.2 Time Spent (min) 24
== END 2024-04-08 14:12 | disposition home or self-care (01) ==
PROVIDERS: PCP Internal Medicine; Visit Provider Nurse Practitioner Family
DX: I47.10 Supraventricular tachycardia, unspecified (principal); R00.2 Palpitations
CPT/HCPCS: 99213

== ENCOUNTER → 2024-04-08 13:38 | Outpatient (BNVA) | payer OTHER, SELFPAY | PROVIDERS: PCP Internal Medicine; Visit Provider Nurse Practitioner Family | DX: I47.10 Supraventricular tachycardia, unspecified (principal); R00.2 Palpitations | CPT/HCPCS: 99212 ==